=== PATIENT | male | born 1965 | race Caucasian/White ===

== ENCOUNTER 2018-05-26 09:15 | Inpatient (IN) | payer OTHER ==
[2018-05-26 09:50] VITALS: BMI 29.4
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
[2018-05-26] MEDS ORDERED: guaiFENesin/D-METHORPHAN HB 10 ML UNIT-DOSE CUPS PO PRN (12:38)
[2018-05-26] MEDS ORDERED: LOPERAMIDE HCL 2 MG CAPSULE PO PRN (12:38)
[2018-05-26] MEDS ORDERED: MENTHOL/PHENOL 1 EACH UD MM PRN (12:38)
[2018-05-26] MEDS ORDERED: IBUPROFEN 400 MG TABLET (FP) PO PRN (12:38)
[2018-05-26] MEDS ORDERED: MAG HYDROX/AL HYDROX/SIMETH 30 ML UNIT-DOSE CUP PO PRN (12:38)
[2018-05-26] MEDS ORDERED: P-EPHED 60MG/TRIPROLIDI 2.5MG TABLET PO PRN (12:38)
[2018-05-26] MEDS ORDERED: MAGNESIUM HYDROX 2400MG/30ML ORAL SUSPENSION 30 ML CUP PO PRN (12:38)
[2018-05-26] MEDS ORDERED: MAGNESIUM CITRATE 300 ML BOTTLE PO PRN (12:38)
[2018-05-26] MEDS ORDERED: NICOTINE POLACRILEX 2 MG GUM BC PRN (12:38)
[2018-05-26] MEDS ORDERED: METHADONE HCL 10 MG TABLET (FOR DETOX USE ONLY) PO ONE ×2 (13:45→23:00)
[2018-05-26] MEDS: diazePAM 5 MG TABLET PO PRN ×3 (14:16→22:16)
[2018-05-26] MEDS: NICOTINE 14 MG/24 HOURS TOPICAL PATCH TD SCH (14:17)
--- NOTE | 2018-05-26 17:34 | EKG ---
Test Reason : Blood Pressure : / mmHG Vent. Rate : 069 BPM Atrial Rate : 069 BPM P-R Int : 168 ms QRS Dur : 102 ms QT Int : 408 ms P-R-T Axes : 049 030 043 degrees QTc Int : 437 ms NORMAL SINUS RHYTHM NORMAL ECG NO PREVIOUS ECGS AVAILABLE Confirmed by BERT DE LA CRUZ MD ([id number]) on 05/26/2018 5:33:39 PM Referred By: Confirmed By:BERT DE LA CRUZ MD
[2018-05-26] MEDS: THIAMINE HCL 100 MG TABLET (FP) PO SCH (22:16)
[2018-05-26] MEDS: MELATONIN 5 MG TABLETS PO PRN (22:17)
[2018-05-26 23:23] LABS: URINE APPEARANCE TURBID; URINE BILIRUBIN NEGATIVE (<2.0 mg/dL); URINE GLUCOSE (UA) NEGATIVE (NEGATIVE); URINE KETONE NEGATIVE (NEGATIVE); URINE LEUK ESTERASE NEGATIVE (NEGATIVE); URINE NITRITE NEGATIVE (NEGATIVE); URINE PROTEIN NEGATIVE (NEGATIVE); URINE UROBILINOGEN NEGATIVE mg/dL (0.2-1.0)
[2018-05-26 23:30] LABS: URINE COLOR YELLOW
--- NOTE | 2018-05-27 09:32 | CONSULT ---
[facility] Psychiatric Consult - Data Date of interview: 05/27/18 Admission source: [facility] Identifying data: Patient is a 52 year old male, , father of one, homeless, and unemployed. This is patient's first admission to detox at [facility]. Pt. admitted to for opioid dependence. Substance Abuse History: - Smoking Cessation. Smoking history: Current every day smoker. Have you smoked in the past 12 months: Yes. Aproximately how many cigarettes per day: 10. Hx Chewing Tobacco Use: No. Initiated information on smoking cessation: Yes. 'Breaking Loose' booklet given: 05/26/18. - Substance & Tx. History. Hx Alcohol Use: Yes (VERY INFREQUENT). Hx Substance Use: Yes ( HEROIN/OXYCONTIN/MARIJUANA). Substance Use Type: Marijuana (OCASSIONALLY). Hx Substance Use Treatment: Yes ([facility] - Substances Abused. Heroin. Route: Inhalation. Frequency: Daily. Amount used: 3-4 bags. Age of first use: 34. Date of Last Use: 05/25/18. Oxycontin. Route : Oral. Frequency: 1-3 times last 30 days. Amount used: 1-2 tabs. (80 mg.). Age of first use: 49. Date of Last Use: 05/19/18. Marijuana. Route: Smoking. Frequency: 1-2 times per week. Amount used: 1 joint. Age of first use: 13. Date of Last Use: 05/25/18 Medical History: asthma, diverticulitis;GERD Psychiatric History: Patient denies h/o psychiatric hospitalization and suicide attempt. Most recent OPD was provided 10 years ago at the inpatient rehab at [facility]. Pt. also seeked psychiatric treatment while in detox at [facility]. Pt. stated he was once prescribed seroquel 300mg + Trazodone 150mg (10 years ago). Pt. discontinued medication due to oversedation which resulted in patient unable to function on a daily basis. Currently, patient reports poor sleep. Physical/Sexual Abuse/Trauma History: denies. Mental Status Exam - Mental Status Exam Alert and Oriented to: Time, Place, Person Cognitive Function: Good Patient Appearance: Well Groomed Mood: Anxious, Euthymic Affect: Appropriate, Mood Congruent Patient Behavior: Appropriate, Cooperative Speech Pattern: Clear, Appropriate Voice Loudness: Normal Thought Process: Intact, Goal Oriented Thought Disorder: Not Present Hallucinations: Denies Suicidal Ideation: Denies Homicidal Ideation: Denies Insight/Judgement: Poor Sleep: Poorly Appetite: Fair Muscle strength/Tone: Normal Gait/Station: Normal Psychiatric Findings - Problem List ([place] 1, 2,3) (1) Nicotine dependence Current Visit: Yes Status: Chronic Qualifiers: Nicotine product type: cigarettes Substance use status: in withdrawal Qualified Code(s): F17.213 - Nicotine dependence, cigarettes, with withdrawal (2) Opioid dependence with withdrawal Current Visit: Yes Status: Acute (3) Substance induced mood disorder Current Visit: Yes Status: Acute (4) Insomnia Current Visit: Yes Status: Acute - Initial Treatment Plan Initial Treatment Plan: Psychoeducation provided. Detoxification in progress. Will order seroquel 50mg qhs. Benefits and side effects discussed. Verbal consent given.
[2018-05-27] MEDS ORDERED: METHADONE HCL 10 MG TABLET (FOR DETOX USE ONLY) PO ONE (10:00)
[2018-05-27 10:14] LABS: MCH 31.6 pg (25.7-33.7); MEAN CELL VOLUME 90.4 fl (80-96); MEAN PLT VOLUME 7.5 fl (7.5-11.1); PLATELET COUNT 303 K/MM3 (134-434); RBC 4.75 M/mm3 (4.00-5.60); RDW 13.7 % (11.9-15.9); WHITE BLOOD COUNT 10.2 K/mm3 (4.0-10.0)
[2018-05-27] MEDS: PRENATAL VITAMINS W/ FOLIC ACID TABLET (FP) PO SCH (10:34)
[2018-05-27] MEDS: NICOTINE 14 MG/24 HOURS TOPICAL PATCH TD SCH (10:34)
[2018-05-27] MEDS: diazePAM 5 MG TABLET PO PRN ×4 (10:34→23:52)
[2018-05-27 10:36] LABS: CHLORIDE 103 mmol/L (98-107); SODIUM 141 mmol/L (136-145)
[2018-05-27 10:51] LABS: ALK PHOS 123 U/L (45-117); ANION GAP 12 MMOL/L (8-16); BILIRUBIN,TOTAL 0.2 mg/dL (0.2-1.0); BLOOD UREA NITROGEN 21 mg/dL (7-18); CO2 26 mmol/L (21-32); CREATININE 0.8 mg/dL (0.7-1.3); GLUCOSE,RANDOM 111 mg/dL (74-106); SGOT/AST 18 U/L (15-37); SGPT/ALT 27 U/L (12-78); TOT PROT 7.5 g/dl (6.4-8.2)
[2018-05-27] MEDS ORDERED: POLYETHYLENE GLYCOL 3350 119 GM BTL PO ONE (11:50)
[2018-05-27] MEDS ORDERED: TRIMETHOBENZAMIDE HCL 300 MG CAPSULE PO PRN (11:51)
[2018-05-27] MEDS: LIDOCAINE 5% TOPICAL PATCH TP SCH (13:52)
--- NOTE | 2018-05-27 14:07 | PN ---
BHS COWS - Scale Resting Pulse: 0= [place] 80 or Below Sweatin=Flushed/Facial Moisture Restless Observation: 1= Difficult to Sit Still Pupil Size: 0= Normal to Room Light Bone or Joint Aches: 2= Severe Diffuse Aches Runny Nose/ Eye Tearin= None GI Upset > 30mins: 2= Nausea/Diarrhea Tremor Observation of Outstretched Hands: 0= None Yawning Observation: 1= 1-2x During Session Anxiety or Irritability: 2=Irritable/Anxious Goose Flesh Skin: 3=Piloerection COWS Score: 13 BHS Progress Note (SOAP) Subjective: Sweating, Body Aches, Hot/Cold Sensations, Interrupted Sleep, Fatigue. Objective: PATIENT A & O X 3, OBSERVED AMBULATING ON UNIT. NO ACUTE DISTRESS. 05/27/18 14:03 Vital Signs Temperature 98.9 F 05/27/18 10:14 Pulse Rate 72 05/27/18 10:14 Respiratory Rate 16 05/27/18 10:14 Blood Pressure 150/88 05/27/18 10:14 O2 Sat by Pulse Oximetry (%) Laboratory Tests 05/26/18 05/27/18 05/27/18 21:44 06:10 06:10 WBC 10.2 H RBC 4.75 Hgb 15.0 Hct 43.0 MCV 90.4 MCH 31.6 MCHC 35.0 RDW 13.7 Plt Count 303 MPV 7.5 Sodium Potassium Chloride Carbon Dioxide Anion Gap BUN Creatinine Creat Clearance w eGFR Random Glucose Calcium Total Bilirubin AST ALT Alkaline Phosphatase Total Protein Albumin Urine Color Yellow Urine Appearance Turbid Urine pH 6.0 Ur Specific [place] 1.024 Urine Protein Negative Urine Glucose (UA) Negative Urine Ketones Negative Urine Blood Negative Urine Nitrite Negative Urine Bilirubin Negative Urine Urobilinogen Negative Ur Leukocyte Esterase Negative RPR Titer HIV 1&2 Antibody Screen Negative HIV P24 Antigen Negative 05/27/18 05/27/18 06:10 06:10 WBC RBC Hgb Hct MCV MCH MCHC RDW Plt Count MPV Sodium 141 Potassium 4.0 Chloride 103 Carbon Dioxide 26 Anion Gap 12 BUN 21 H Creatinine 0.8 Creat Clearance w eGFR > 60 Random Glucose 111 H Calcium 9.0 Total Bilirubin 0.2 AST 18 ALT 27 Alkaline Phosphatase 123 H Total Protein 7.5 Albumin 4.0 Urine Color Urine Appearance Urine pH Ur Specific [place] Urine Protein Urine Glucose (UA) Urine Ketones Urine Blood Urine Nitrite Urine Bilirubin Urine Urobilinogen Ur Leukocyte Esterase RPR Titer Nonreactive HIV 1&2 Antibody Screen HIV P24 Antigen LABS NOTED. Assessment: 05/27/18 14:05 WITHDRAWAL SYMPTOMS. Plan: CONTINUE DETOX. INCREASE DAILY PO FLUID INTAKE. PRN FLEXERIL FOR BODY ACHES/MUSCLE SPASMS. PRN TIGAN PO FOR NAUSEA. LIDODERM PATCH FOR LOWER BACK ACHE.
[2018-05-27] MEDS: CYCLOBENZAPRINE HCL 10 MG TABLET (FP) PO PRN ×2 (15:21→22:36)
[2018-05-27] MEDS: QUEtiapine FUMARATE 50 MG TABLET PO SCH (22:33)
[2018-05-27] MEDS: THIAMINE HCL 100 MG TABLET (FP) PO SCH (22:33)
[2018-05-27] MEDS: LIDOCAINE PATCH REMOVAL MC SCH (22:33)
[2018-05-27] MEDS: MELATONIN 5 MG TABLETS PO PRN (22:34)
[2018-05-28] MEDS: ACETAMINOPHEN 325 MG TABLET (FP) PO PRN (03:22)
[2018-05-28] MEDS: diazePAM 5 MG TABLET PO PRN ×4 (03:58→22:17)
[2018-05-28] MEDS ORDERED: POLYETHYLENE GLYCOL 3350 119 GM BTL PO SCH (10:00)
[2018-05-28] MEDS ORDERED: METHADONE HCL 5 MG TABLET (FOR DETOX USE ONLY) PO ONE (10:00)
[2018-05-28] MEDS: PRENATAL VITAMINS W/ FOLIC ACID TABLET (FP) PO SCH (10:09)
[2018-05-28] MEDS: METHYL SALICYLATE/MENTHOL OINT 30 GM TUBE TP SCH ×2 (10:10→22:17)
[2018-05-28] MEDS: NICOTINE 14 MG/24 HOURS TOPICAL PATCH TD SCH (10:10)
[2018-05-28] MEDS: NAPROXEN 500 MG TABLET (FP) PO SCH ×2 (10:10→22:17)
[2018-05-28] MEDS: LIDOCAINE 5% TOPICAL PATCH TP SCH (10:10)
--- NOTE | 2018-05-28 13:12 | PN ---
BHS COWS - Scale Resting Pulse: 0= [place] 80 or Below Sweatin= Chills/Flushing Restless Observation: 1= Difficult to Sit Still Pupil Size: 0= Normal to Room Light Bone or Joint Aches: 4=Acute Joint/Muscle Pain Runny Nose/ Eye Tearin= None GI Upset > 30mins: 2= Nausea/Diarrhea Tremor Observation of Outstretched Hands: 2= Slight Tremor Visible Yawning Observation: 1= 1-2x During Session Anxiety or Irritability: 2=Irritable/Anxious Goose Flesh Skin: 0=Smooth Skin COWS Score: 13 BHS Progress Note (SOAP) Subjective: Interrupted sleep, Diarrhea, Body Aches, Sweating, Tremors. Objective: PATIENT A & O X 3, OBSERVED AMBULATING ON UNIT. NO ACUTE DISTRESS. 05/28/18 13:09 Vital Signs Temperature 98.4 F 05/28/18 10:01 Pulse Rate 67 05/28/18 10:01 Respiratory Rate 18 05/28/18 10:01 Blood Pressure 149/92 05/28/18 10:01 O2 Sat by Pulse Oximetry (%) Laboratory Tests 05/26/18 05/27/18 05/27/18 21:44 06:10 06:10 WBC 10.2 H RBC 4.75 Hgb 15.0 Hct 43.0 MCV 90.4 MCH 31.6 MCHC 35.0 RDW 13.7 Plt Count 303 MPV 7.5 Sodium Potassium Chloride Carbon Dioxide Anion Gap BUN Creatinine Creat Clearance w eGFR Random Glucose Calcium Total Bilirubin AST ALT Alkaline Phosphatase Total Protein Albumin Urine Color Yellow Urine Appearance Turbid Urine pH 6.0 Ur Specific [place] 1.024 Urine Protein Negative Urine Glucose (UA) Negative Urine Ketones Negative Urine Blood Negative Urine Nitrite Negative Urine Bilirubin Negative Urine Urobilinogen Negative Ur Leukocyte Esterase Negative RPR Titer HIV 1&2 Antibody Screen Negative HIV P24 Antigen Negative 05/27/18 05/27/18 06:10 06:10 WBC RBC Hgb Hct MCV MCH MCHC RDW Plt Count MPV Sodium 141 Potassium 4.0 Chloride 103 Carbon Dioxide 26 Anion Gap 12 BUN 21 H Creatinine 0.8 Creat Clearance w eGFR > 60 Random Glucose 111 H Calcium 9.0 Total Bilirubin 0.2 AST 18 ALT 27 Alkaline Phosphatase 123 H Total Protein 7.5 Albumin 4.0 Urine Color Urine Appearance Urine pH Ur Specific [place] Urine Protein Urine Glucose (UA) Urine Ketones Urine Blood Urine Nitrite Urine Bilirubin Urine Urobilinogen Ur Leukocyte Esterase RPR Titer Nonreactive HIV 1&2 Antibody Screen HIV P24 Antigen LABS NOTED. Assessment: 05/28/18 13:10 WITHDRAWAL SYMPTOMS. Plan: CONTINUE DETOX. INCREASE DAILY PO FLUID INTAKE. HOLD MIRALAX FOR TIME BEING DUE TO DIARRHEA. NAPROXEN BID BODY ACHES (PATIENT ALSO HAS CHRONIC SHOULD PAIN CONDITION). CLONIDINE, 0.1 MG PO X 1 FOR WITHDRAWAL SYMPTOMS AND FOR ELEVATED BP.
[2018-05-28] MEDS: CYCLOBENZAPRINE HCL 10 MG TABLET (FP) PO PRN ×2 (13:39→22:17)
[2018-05-28] MEDS ORDERED: cloNIDine HCL 0.1 MG TABLET PO ONE (13:50)
[2018-05-28] MEDS: QUEtiapine FUMARATE 50 MG TABLET PO SCH (22:17)
[2018-05-28] MEDS: THIAMINE HCL 100 MG TABLET (FP) PO SCH (22:18)
[2018-05-28] MEDS: LIDOCAINE PATCH REMOVAL MC SCH (22:18)
[2018-05-29] MEDS: diazePAM 5 MG TABLET PO PRN ×2 (03:47→10:25)
[2018-05-29] MEDS ORDERED: METHADONE HCL 5 MG TABLET (FOR DETOX USE ONLY) PO ONE (10:00)
[2018-05-29] MEDS: METHYL SALICYLATE/MENTHOL OINT 30 GM TUBE TP SCH (10:21)
[2018-05-29] MEDS: NAPROXEN 500 MG TABLET (FP) PO SCH ×2 (10:22→22:21)
[2018-05-29] MEDS: LIDOCAINE 5% TOPICAL PATCH TP SCH ×2 (10:22→15:44)
[2018-05-29] MEDS: PRENATAL VITAMINS W/ FOLIC ACID TABLET (FP) PO SCH (10:22)
[2018-05-29] MEDS: NICOTINE 14 MG/24 HOURS TOPICAL PATCH TD SCH (10:22)
[2018-05-29] MEDS: CYCLOBENZAPRINE HCL 10 MG TABLET (FP) PO PRN (12:55)
--- NOTE | 2018-05-29 15:33 | PN ---
BHS Progress Note (SOAP) Subjective: Sweating, Body Aches, Anxious. Objective: PATIENT A & O X 3, OBSERVED AMBULATING ON UNIT. NO ACUTE DISTRESS. 05/29/18 15:32 Vital Signs Temperature 97.5 F L 05/29/18 09:52 Pulse Rate 73 05/29/18 09:52 Respiratory Rate 18 05/29/18 09:52 Blood Pressure 145/87 05/29/18 09:52 O2 Sat by Pulse Oximetry (%) Laboratory Tests 05/26/18 05/27/18 05/27/18 21:44 06:10 06:10 WBC 10.2 H RBC 4.75 Hgb 15.0 Hct 43.0 MCV 90.4 MCH 31.6 MCHC 35.0 RDW 13.7 Plt Count 303 MPV 7.5 Sodium Potassium Chloride Carbon Dioxide Anion Gap BUN Creatinine Creat Clearance w eGFR Random Glucose Calcium Total Bilirubin AST ALT Alkaline Phosphatase Total Protein Albumin Urine Color Yellow Urine Appearance Turbid Urine pH 6.0 Ur Specific [place] 1.024 Urine Protein Negative Urine Glucose (UA) Negative Urine Ketones Negative Urine Blood Negative Urine Nitrite Negative Urine Bilirubin Negative Urine Urobilinogen Negative Ur Leukocyte Esterase Negative RPR Titer HIV 1&2 Antibody Screen Negative HIV P24 Antigen Negative 05/27/18 05/27/18 06:10 06:10 WBC RBC Hgb Hct MCV MCH MCHC RDW Plt Count MPV Sodium 141 Potassium 4.0 Chloride 103 Carbon Dioxide 26 Anion Gap 12 BUN 21 H Creatinine 0.8 Creat Clearance w eGFR > 60 Random Glucose 111 H Calcium 9.0 Total Bilirubin 0.2 AST 18 ALT 27 Alkaline Phosphatase 123 H Total Protein 7.5 Albumin 4.0 Urine Color Urine Appearance Urine pH Ur Specific [place] Urine Protein Urine Glucose (UA) Urine Ketones Urine Blood Urine Nitrite Urine Bilirubin Urine Urobilinogen Ur Leukocyte Esterase RPR Titer Nonreactive HIV 1&2 Antibody Screen HIV P24 Antigen LABS NOTED. Assessment: 05/29/18 15:32 WITHDRAWAL SYMPTOMS. Plan: CONTINUE DETOX. INCREASE DAILY PO FLUID INTAKE.
[2018-05-29] MEDS: QUEtiapine FUMARATE 50 MG TABLET PO SCH (22:21)
[2018-05-29] MEDS: LIDOCAINE PATCH REMOVAL MC SCH ×2 (22:21)
[2018-05-29] MEDS: THIAMINE HCL 100 MG TABLET (FP) PO SCH (22:21)
[2018-05-29] MEDS: MELATONIN 5 MG TABLETS PO PRN (22:22)
[2018-05-29] MEDS: hydrOXYzine PAMOATE 50 MG CAPSULE (FP) PO PRN (22:24)
[2018-05-30] MEDS ORDERED: METHADONE HCL 10 MG TABLET (FOR DETOX USE ONLY) PO ONE (10:00)
[2018-05-30] MEDS: NICOTINE 14 MG/24 HOURS TOPICAL PATCH TD SCH (10:14)
[2018-05-30] MEDS: PRENATAL VITAMINS W/ FOLIC ACID TABLET (FP) PO SCH (10:14)
[2018-05-30] MEDS: LIDOCAINE 5% TOPICAL PATCH TP SCH ×2 (10:14)
[2018-05-30] MEDS: NAPROXEN 500 MG TABLET (FP) PO SCH ×2 (10:14→22:46)
[2018-05-30] MEDS: hydrOXYzine PAMOATE 50 MG CAPSULE (FP) PO PRN ×2 (10:15→19:04)
[2018-05-30] MEDS: CYCLOBENZAPRINE HCL 10 MG TABLET (FP) PO PRN ×2 (13:47→22:46)
[2018-05-30] MEDS: ACETAMINOPHEN 325 MG TABLET (FP) PO PRN (14:26)
--- NOTE | 2018-05-30 15:48 | PN ---
BHS Progress Note (SOAP) Subjective: Interrupted sleep, sweating, diarrhea Objective: 05/30/18 15:47 Last Vital Signs Temp Pulse Resp BP Pulse Ox 99.1 F 85 18 145/82 05/30/18 14:42 05/30/18 14:42 05/30/18 14:42 05/30/18 14:42 Laboratory Tests 05/26/18 05/27/18 05/27/18 21:44 06:10 06:10 WBC 10.2 H RBC 4.75 Hgb 15.0 Hct 43.0 MCV 90.4 MCH 31.6 MCHC 35.0 RDW 13.7 Plt Count 303 MPV 7.5 Sodium Potassium Chloride Carbon Dioxide Anion Gap BUN Creatinine Creat Clearance w eGFR Random Glucose Calcium Total Bilirubin AST ALT Alkaline Phosphatase Total Protein Albumin Urine Color Yellow Urine Appearance Turbid Urine pH 6.0 Ur Specific [place] 1.024 Urine Protein Negative Urine Glucose (UA) Negative Urine Ketones Negative Urine Blood Negative Urine Nitrite Negative Urine Bilirubin Negative Urine Urobilinogen Negative Ur Leukocyte Esterase Negative RPR Titer HIV 1&2 Antibody Screen Negative HIV P24 Antigen Negative 05/27/18 05/27/18 06:10 06:10 WBC RBC Hgb Hct MCV MCH MCHC RDW Plt Count MPV Sodium 141 Potassium 4.0 Chloride 103 Carbon Dioxide 26 Anion Gap 12 BUN 21 H Creatinine 0.8 Creat Clearance w eGFR > 60 Random Glucose 111 H Calcium 9.0 Total Bilirubin 0.2 AST 18 ALT 27 Alkaline Phosphatase 123 H Total Protein 7.5 Albumin 4.0 Urine Color Urine Appearance Urine pH Ur Specific [place] Urine Protein Urine Glucose (UA) Urine Ketones Urine Blood Urine Nitrite Urine Bilirubin Urine Urobilinogen Ur Leukocyte Esterase RPR Titer Nonreactive HIV 1&2 Antibody Screen HIV P24 Antigen Labs reviewed: bun 21 Assessment: 05/30/18 15:47 Withdrawal symptoms Noted with azotemia Plan: Continue detox Azotemia: encouraged PO water hydration
[2018-05-30] MEDS: LIDOCAINE PATCH REMOVAL MC SCH ×2 (22:43)
[2018-05-30] MEDS: MELATONIN 5 MG TABLETS PO PRN (22:46)
[2018-05-30] MEDS: THIAMINE HCL 100 MG TABLET (FP) PO SCH (22:46)
[2018-05-30] MEDS: QUEtiapine FUMARATE 50 MG TABLET PO SCH (22:47)
[2018-05-31] MEDS: ACETAMINOPHEN 325 MG TABLET (FP) PO PRN ×2 (02:14→07:54)
[2018-05-31] MEDS: hydrOXYzine PAMOATE 50 MG CAPSULE (FP) PO PRN (04:08)
[2018-05-31] MEDS ORDERED: METHADONE HCL 5 MG TABLET (FOR DETOX USE ONLY) PO ONE (06:00)
[2018-05-31 06:12] VITALS: BP 107/65; PULSE 64; TEMP 97.3
[2018-05-31] MEDS: CYCLOBENZAPRINE HCL 10 MG TABLET (FP) PO PRN (07:55)
[2018-05-31] MEDS ORDERED: ALBUTEROL SO4 8 GM HFA INHALER IH PRN (08:47)
== END 2018-05-31 09:36 | disposition home or self-care (01) | DRG 773 ==
LOC: YASAS 09:15 → Y3N 12:55
PROVIDERS: ADMIT Surgery; ATTEND Surgery
PROC: HZ2ZZZZ Detoxification Services for Substance Abuse Treatment (ICD-10-PCS; principal; 2018-05-26)
DX: F11.23 Opioid dependence with withdrawal (principal); F17.213 Nicotine dependence, cigarettes, with withdrawal; F19.24 Other psychoactive substance dependence with psychoactive substance-induced mood disorder; F41.8 Other specified anxiety disorders; G47.00 Insomnia, unspecified; J45.20 Mild intermittent asthma, uncomplicated; K21.9 Gastro-esophageal reflux disease without esophagitis; R79.89 Other specified abnormal findings of blood chemistry; Z87.19 Personal history of other diseases of the digestive system
CPT/HCPCS: 36415; 80053; 81003; 85027; 86593; 87389; 93005; 93010; J0735

== ENCOUNTER 2018-06-29 09:43 | Inpatient (IN) | payer OTHER ==
[2018-06-29 10:23] VITALS: BMI 30.2
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
[2018-06-29] MEDS ORDERED: IBUPROFEN 400 MG TABLET (FP) PO PRN (11:51)
[2018-06-29] MEDS ORDERED: P-EPHED 60MG/TRIPROLIDI 2.5MG TABLET PO PRN (11:51)
[2018-06-29] MEDS ORDERED: ACETAMINOPHEN 325 MG TABLET (FP) PO PRN (11:51)
[2018-06-29] MEDS ORDERED: MAGNESIUM HYDROX 2400MG/30ML ORAL SUSPENSION 30 ML CUP PO PRN (11:51)
[2018-06-29] MEDS ORDERED: LOPERAMIDE HCL 2 MG CAPSULE PO PRN (11:51)
[2018-06-29] MEDS ORDERED: MENTHOL/PHENOL 1 EACH UD MM PRN (11:51)
[2018-06-29] MEDS ORDERED: guaiFENesin/D-METHORPHAN HB 10 ML UNIT-DOSE CUPS PO PRN (11:51)
[2018-06-29] MEDS ORDERED: MAGNESIUM CITRATE 300 ML BOTTLE PO PRN (11:51)
[2018-06-29] MEDS ORDERED: NICOTINE POLACRILEX 2 MG GUM BUC PRN (11:51)
[2018-06-29] MEDS ORDERED: ALBUTEROL SO4 8 GM HFA INHALER IH PRN (11:53)
[2018-06-29] MEDS ORDERED: diazePAM 5 MG TABLET PO ONE (12:00)
[2018-06-29] MEDS ORDERED: METHADONE HCL 10 MG TABLET (FOR DETOX USE ONLY) PO ONE ×2 (12:00→23:00)
--- NOTE | 2018-06-29 16:35 | EKG ---
Test Reason : Blood Pressure : / mmHG Vent. Rate : 067 BPM Atrial Rate : 067 BPM P-R Int : 174 ms QRS Dur : 110 ms QT Int : 400 ms P-R-T Axes : 040 016 018 degrees QTc Int : 422 ms NORMAL SINUS RHYTHM SEPTAL INFARCT , AGE UNDETERMINED ABNORMAL ECG WHEN COMPARED WITH ECG OF 26-MAY-2018 13:58, SEPTAL INFARCT IS NOW PRESENT Confirmed by MD Starr, Edilberto ([id number]) on 06/29/2018 4:35:23 PM Referred By: Confirmed By:Edilberto Clements MD
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
[2018-06-29] MEDS: diazePAM 5 MG TABLET PO PRN (18:25)
[2018-06-29] MEDS: QUEtiapine FUMARATE 50 MG TABLET PO SCH (22:15)
[2018-06-29] MEDS: THIAMINE HCL 100 MG TABLET (FP) PO SCH (22:15)
[2018-06-29] MEDS: cloNIDine HCL 0.1 MG TABLET PO SCH (22:16)
[2018-06-29] MEDS: diazePAM 5 MG TABLET PO SCH (22:16)
[2018-06-29] MEDS: CYCLOBENZAPRINE HCL 10 MG TABLET (FP) PO PRN (22:18)
[2018-06-30] MEDS: MELATONIN 5 MG TABLETS PO PRN ×2 (01:42→22:10)
[2018-06-30] MEDS: diazePAM 5 MG TABLET PO PRN ×4 (01:43→17:33)
[2018-06-30] MEDS ORDERED: METHADONE HCL 10 MG TABLET (FOR DETOX USE ONLY) PO SCH (10:00)
[2018-06-30 10:05] LABS: HEMATOCRIT 41.7 % (35.4-49); HEMOGLOBIN 13.9 GM/dL (11.7-16.9); MCHC 33.5 g/dl (32.0-35.9); MEAN CELL VOLUME 92.7 fl (80-96); MEAN PLT VOLUME 7.7 fl (7.5-11.1); PLATELET COUNT 365 K/MM3 (134-434); RDW 13.9 % (11.9-15.9); WHITE BLOOD COUNT 10.2 K/mm3 (4.0-10.0)
[2018-06-30 10:19] LABS: ALK PHOS 94 U/L (45-117); ANION GAP 10 MMOL/L (8-16); BILIRUBIN,TOTAL 0.3 mg/dL (0.2-1); BLOOD UREA NITROGEN 19 mg/dL (7-18); CALCIUM 9.3 mg/dL (8.5-10.1); CHLORIDE 106 mmol/L (98-107); CO2 24 mmol/L (21-32); CREATININE 0.9 mg/dL (0.55-1.3); GLUCOSE,RANDOM 140 mg/dL (74-106); POTASSIUM 4.1 mmol/L (3.5-5.1); SGOT/AST 8 U/L (15-37); SGPT/ALT 18 U/L (13-61); SODIUM 139 mmol/L (136-145); TOT PROT 7.3 g/dl (6.4-8.2)
[2018-06-30] MEDS: PRENATAL VITAMINS W/ FOLIC ACID TABLET (FP) PO SCH (10:24)
[2018-06-30] MEDS: cloNIDine HCL 0.1 MG TABLET PO SCH ×2 (10:24→22:10)
[2018-06-30] MEDS ORDERED: FLU VACCINE QUAD 60 MCG/0.5 ML (MDV 18-19) IM ONE (12:00)
[2018-06-30] MEDS ORDERED: PNEUMOCOCCAL 23 VACCINE 0.5 ML VIAL IM ONE (12:00)
[2018-06-30] MEDS ORDERED: PNEUMOC 13-VAL CONJ-DIP CRM/PF 0.5 ML DISP.SYRIN IM ONE (12:00)
[2018-06-30] MEDS: diazePAM 5 MG TABLET PO SCH (16:16)
--- NOTE | 2018-06-30 18:23 | PN ---
[facility] CIWA - CIWA Score Nausea/Vomitin-Mild Nausea/No Vomiting Muscle Tremors: 4-Moderate,w/Arms Extend Anxiety: 3 Agitation: 4-Moderately Restless Paroxysmal Sweats: 1-Minimal Palms Moist Orientation: 1-Uncertain about Date Tacttile Disturbances: 1-Very Mild Itch/Numbness Auditory Disturbances: 0-None Visual Disturbances: 0-None Headache: 0-None Present CIWA-Ar Total Score: 15 S COWS - Scale Resting Pulse: 0= [place] 80 or Below Sweatin= Chills/Flushing Restless Observation: 1= Difficult to Sit Still Pupil Size: 0= Normal to Room Light Bone or Joint Aches: 2= Severe Diffuse Aches Runny Nose/ Eye Tearin= Nasal Congestion GI Upset > 30mins: 2= Nausea/Diarrhea Tremor Observation of Outstretched Hands: 2= Slight Tremor Visible Yawning Observation: 1= 1-2x During Session Anxiety or Irritability: 2=Irritable/Anxious Goose Flesh Skin: 3=Piloerection COWS Score: 15 [facility] Progress Note (SOAP) Subjective: tremor sweat anxiety nausea Objective: 06/30/18 18:23 Vital Signs Temperature 97.9 F 06/30/18 17:33 Pulse Rate 67 06/30/18 17:33 Respiratory Rate 18 06/30/18 17:33 Blood Pressure 120/67 06/30/18 17:33 O2 Sat by Pulse Oximetry (%) Laboratory Last Values WBC 10.2 K/mm3 (4.0-10.0) H 06/30/18 05:45 RBC 4.50 M/mm3 (4.00-5.60) 06/30/18 05:45 Hgb 13.9 GM/dL (11.7-16.9) 06/30/18 05:45 Hct 41.7 % (35.4-49) 06/30/18 05:45 MCV 92.7 fl (80-96) 06/30/18 05:45 MCH 31.0 pg (25.7-33.7) 06/30/18 05:45 MCHC 33.5 g/dl (32.0-35.9) 06/30/18 05:45 RDW 13.9 % (11.9-15.9) 06/30/18 05:45 Plt Count 365 K/MM3 (134-434) D 06/30/18 05:45 MPV 7.7 fl (7.5-11.1) 06/30/18 05:45 Sodium 139 mmol/L (136-145) 06/30/18 05:45 Potassium 4.1 mmol/L (3.5-5.1) 06/30/18 05:45 Chloride 106 mmol/L (98-107) 06/30/18 05:45 Carbon Dioxide 24 mmol/L (21-32) 06/30/18 05:45 Anion Gap 10 MMOL/L (8-16) 06/30/18 05:45 BUN 19 mg/dL (7-18) H 06/30/18 05:45 Creatinine 0.9 mg/dL (0.55-1.3) 06/30/18 05:45 Creat Clearance w eGFR > 60 (>60) 06/30/18 05:45 Random Glucose 140 mg/dL (74-106) H 06/30/18 05:45 Calcium 9.3 mg/dL (8.5-10.1) 06/30/18 05:45 Total Bilirubin 0.3 mg/dL (0.2-1) 06/30/18 05:45 AST 8 U/L (15-37) L 06/30/18 05:45 ALT 18 U/L (13-61) 06/30/18 05:45 Alkaline Phosphatase 94 U/L (45-117) 06/30/18 05:45 Total Protein 7.3 g/dl (6.4-8.2) 06/30/18 05:45 Albumin 4.0 g/dl (3.4-5.0) 06/30/18 05:45 RPR Titer Nonreactive (NONREACTIVE) 06/30/18 05:45 lab noted Assessment: 06/30/18 18:23 withdrawal sx Plan: continue detox
[2018-06-30] MEDS: CYCLOBENZAPRINE HCL 10 MG TABLET (FP) PO PRN (22:10)
[2018-06-30] MEDS: THIAMINE HCL 100 MG TABLET (FP) PO SCH (22:10)
[2018-06-30] MEDS: QUEtiapine FUMARATE 50 MG TABLET PO SCH (22:10)
[2018-07-01] MEDS: diazePAM 5 MG TABLET PO PRN ×4 (01:41→18:16)
[2018-07-01] MEDS: hydrOXYzine PAMOATE 50 MG CAPSULE (FP) PO PRN (03:19)
[2018-07-01] MEDS: diazePAM 5 MG TABLET PO SCH ×2 (10:53→22:42)
[2018-07-01] MEDS: PRENATAL VITAMINS W/ FOLIC ACID TABLET (FP) PO SCH (10:53)
[2018-07-01] MEDS: METHADONE HCL 5 MG TABLET (FOR DETOX USE ONLY) PO SCH (10:54)
[2018-07-01] MEDS: cloNIDine HCL 0.1 MG TABLET PO SCH ×2 (10:54→22:42)
--- NOTE | 2018-07-01 11:27 | PN ---
S CIWA - CIWA Score Nausea/Vomitin-Mild Nausea/No Vomiting Muscle Tremors: 2 Anxiety: 3 Agitation: 3 Paroxysmal Sweats: 2 Orientation: 0-Oriented Tacttile Disturbances: 1-Very Mild Itch/Numbness Auditory Disturbances: 0-None Visual Disturbances: 0-None Headache: 0-None Present CIWA-Ar Total Score: 12 [facility] COWS - Scale Resting Pulse: 0= [place] 80 or Below Sweatin=Flushed/Facial Moisture Restless Observation: 1= Difficult to Sit Still Pupil Size: 1= Pupils >than Normal Bone or Joint Aches: 1= Mild Discomfort Runny Nose/ Eye Tearin= Nasal Congestion GI Upset > 30mins: 1= Stomach Cramp Tremor Observation of Outstretched Hands: 2= Slight Tremor Visible Yawning Observation: 1= 1-2x During Session Anxiety or Irritability: 2=Irritable/Anxious Goose Flesh Skin: 0=Smooth Skin COWS Score: 12 S Progress Note (SOAP) Subjective: interrupted sleep, no sleep last night, irritable, chills, sweat Objective: 07/01/18 11:27 Vital Signs Temperature 97.3 F L 07/01/18 09:13 Pulse Rate 66 07/01/18 09:13 Respiratory Rate 18 07/01/18 09:13 Blood Pressure 128/72 07/01/18 09:13 O2 Sat by Pulse Oximetry (%) Laboratory Last Values WBC 10.2 K/mm3 (4.0-10.0) H 06/30/18 05:45 RBC 4.50 M/mm3 (4.00-5.60) 06/30/18 05:45 Hgb 13.9 GM/dL (11.7-16.9) 06/30/18 05:45 Hct 41.7 % (35.4-49) 06/30/18 05:45 MCV 92.7 fl (80-96) 06/30/18 05:45 MCH 31.0 pg (25.7-33.7) 06/30/18 05:45 MCHC 33.5 g/dl (32.0-35.9) 06/30/18 05:45 RDW 13.9 % (11.9-15.9) 06/30/18 05:45 Plt Count 365 K/MM3 (134-434) D 06/30/18 05:45 MPV 7.7 fl (7.5-11.1) 06/30/18 05:45 Sodium 139 mmol/L (136-145) 06/30/18 05:45 Potassium 4.1 mmol/L (3.5-5.1) 06/30/18 05:45 Chloride 106 mmol/L (98-107) 06/30/18 05:45 Carbon Dioxide 24 mmol/L (21-32) 06/30/18 05:45 Anion Gap 10 MMOL/L (8-16) 06/30/18 05:45 BUN 19 mg/dL (7-18) H 06/30/18 05:45 Creatinine 0.9 mg/dL (0.55-1.3) 06/30/18 05:45 Creat Clearance w eGFR > 60 (>60) 06/30/18 05:45 Random Glucose 140 mg/dL (74-106) H 06/30/18 05:45 Calcium 9.3 mg/dL (8.5-10.1) 06/30/18 05:45 Total Bilirubin 0.3 mg/dL (0.2-1) 06/30/18 05:45 AST 8 U/L (15-37) L 06/30/18 05:45 ALT 18 U/L (13-61) 06/30/18 05:45 Alkaline Phosphatase 94 U/L (45-117) 06/30/18 05:45 Total Protein 7.3 g/dl (6.4-8.2) 06/30/18 05:45 Albumin 4.0 g/dl (3.4-5.0) 06/30/18 05:45 RPR Titer Nonreactive (NONREACTIVE) 06/30/18 05:45 Assessment: 07/01/18 15:06 AO X3 no distress no adventitious breath sounds full ROM, ambulating independently in the unit Plan: psych re: insomnia increase po fluids continue detox continue to monitor
[2018-07-01 14:34] LABS: URINE APPEARANCE CLEAR; URINE BILIRUBIN NEGATIVE (<2.0 mg/dL); URINE COLOR LTYELLOW; URINE GLUCOSE (UA) NEGATIVE (NEGATIVE); URINE KETONE NEGATIVE (NEGATIVE); URINE LEUK ESTERASE NEGATIVE (NEGATIVE); URINE NITRITE NEGATIVE (NEGATIVE); URINE PROTEIN NEGATIVE (NEGATIVE); URINE UROBILINOGEN NEGATIVE mg/dL (0.2-1.0)
--- NOTE | 2018-07-01 16:20 | PN ---
Psychiatric Progress Note Vital Signs: Vital Signs Period Temp Pulse Resp BP Sys/Cabrera Pulse Ox Last 24 Hr 97.3 F-97.9 F 66-78 18-18 120-135/67-81 Date of Session: 07/01/18 Chief Complaint:: "I cant' sleep." HPI: Pt. admitted to for alcohol and opiate dependence ROS: Diverticulities, Asthma Current Medications: Active Medications Generic Name Dose Route Start Last Admin Trade Name Freq PRN Reason Stop Dose Admin Acetaminophen 650 mg 06/29/18 11:51 Tylenol - PO Q4H PRN FEVER Al Hydroxide/Mg Hydroxide 30 ml 06/29/18 11:51 Mylanta Oral Suspension - PO Q6H PRN DYSPEPSIA Albuterol Sulfate 2 puff 06/29/18 11:53 Ventolin Hfa Inhaler - IH Q4H PRN ASTHMA Clonidine 0.1 mg 06/29/18 22:00 07/01/18 10:54 Catapres - PO 0.1 mg BID MAXINE Administration Cyclobenzaprine HCl 10 mg 06/29/18 11:54 06/30/18 22:10 Flexeril - PO 10 mg TID PRN Administration MUSCLE SPASMS Diazepam 5 mg 07/01/18 10:00 07/01/18 10:53 Valium - PO 07/02/18 22:01 5 mg BID MAXINE Administration Diazepam 5 mg 07/03/18 10:00 Valium - PO 07/03/18 10:01 DAILY MAXINE Diazepam 10 mg 06/29/18 11:51 07/01/18 14:45 Valium - PO 07/02/18 11:51 10 mg Q4H PRN Administration WITHDRAWAL(CONT SUBST) Docusate Sodium 100 mg 07/01/18 22:00 Colace - PO TID MAXINE Eucalyptus/Menthol/Phenol/Sorbitol 1 each 06/29/18 11:51 Cepastat Lozenge - MM Q4H PRN SORE THROAT Guaifenesin 10 ml 06/29/18 11:51 Robitussin Dm - PO Q6H PRN COUGH Hydroxyzine Pamoate 50 mg 06/29/18 11:51 07/01/18 03:19 Vistaril - PO 50 mg Q4H PRN Administration AGITATION Ibuprofen 400 mg 06/29/18 11:51 Motrin - PO Q6H PRN PAIN LEVEL 4-6 Loperamide HCl 4 mg 06/29/18 11:51 Imodium - PO Q6H PRN DIARRHEA Magnesium Citrate 300 ml 06/29/18 11:51 07/01/18 15:07 Citroma - PO 300 ml Q48H PRN Administration CONSTIPATION Magnesium Hydroxide 30 ml 06/29/18 11:51 Milk Of Magnesia - PO DAILY PRN CONSTIPATION Melatonin 5 mg 06/29/18 22:00 06/30/18 22:10 Melatonin PO 5 mg HS PRN Administration INSOMNIA Methadone HCl 10 mg 07/03/18 10:00 Dolophine - PO 07/03/18 10:01 DAILY MAXINE Methadone HCl 15 mg 07/01/18 10:00 07/01/18 10:54 Dolophine - PO 07/02/18 10:01 15 mg DAILY MAXINE Administration Methadone HCl 5 mg 07/04/18 06:00 Dolophine - PO 07/04/18 06:01 DAILY@0600 MAXINE Nicotine Polacrilex 2 mg 06/29/18 11:51 Nicorette Gum - BUC Q2H PRN NICOTINE REPLACEMENT RX Multivit/Folic Acid/Iron 1 tab 06/30/18 10:00 07/01/18 10:53 Vitamins (Sjr) - PO 1 tab DAILY MAXINE Administration Pseudoephedrine/Triprolidine 1 combo 06/29/18 11:51 Actifed - PO TID PRN NASAL CONGESTION Quetiapine Fumarate 50 mg 06/29/18 22:00 06/30/18 22:10 Seroquel - PO 50 mg HS MAXINE Administration Thiamine HCl 100 mg 06/29/18 22:00 06/30/18 22:10 Vitamin B1 - PO 100 mg HS MAXINE Administration Medication(s) Change(s): Yes. Will increase Seroquel to 100mg Current Side Effect: No Lab tests ordered: No Lab tests reviewed: Yes Provider note:: Chart reviewed. Pt. reports poor sleep. He is currently prescribed seroquel 50mg. Will increase seroquel to 100mg. Sleep hygiene discussed. Verbal consent given. Total face to face time:: 25 Mental Status Exam - Mental Status Exam Alert and Oriented to: Time, Place, Person Cognitive Function: Good Patient Appearance: Well Groomed Mood: Euthymic Affect: Mood Congruent Patient Behavior: Appropriate, Cooperative Speech Pattern: Clear, Appropriate Voice Loudness: Normal Thought Process: Intact, Goal Oriented Thought Disorder: Not Present Hallucinations: Denies Suicidal Ideation: Denies Homicidal Ideation: Denies Insight/Judgement: Poor Sleep: Poorly Appetite: Fair Muscle strength/Tone: Normal Gait/Station: Normal Psychiatric Treatment Plan - Problem List (1) Alcohol dependence with uncomplicated withdrawal Current Visit: Yes (2) Uncomplicated sedative, hypnotic or anxiolytic withdrawal Current Visit: Yes (3) Insomnia Current Visit: Yes (4) Opioid dependence with withdrawal Current Visit: Yes (5) Substance induced mood disorder Current Visit: Yes
[2018-07-01] MEDS: THIAMINE HCL 100 MG TABLET (FP) PO SCH (22:42)
[2018-07-01] MEDS: QUEtiapine FUMARATE 100 MG TABLET (FP) PO SCH (22:42)
[2018-07-01] MEDS: DOCUSATE SODIUM 100 MG CAPSULE (FP) PO SCH (22:42)
[2018-07-01] MEDS: MELATONIN 5 MG TABLETS PO PRN (22:44)
[2018-07-02] MEDS: diazePAM 5 MG TABLET PO PRN ×2 (02:23→06:33)
[2018-07-02] MEDS: DOCUSATE SODIUM 100 MG CAPSULE (FP) PO SCH ×3 (05:28→22:24)
[2018-07-02] MEDS: cloNIDine HCL 0.1 MG TABLET PO SCH ×2 (10:19→22:24)
[2018-07-02] MEDS: PRENATAL VITAMINS W/ FOLIC ACID TABLET (FP) PO SCH (10:19)
[2018-07-02] MEDS: METHADONE HCL 5 MG TABLET (FOR DETOX USE ONLY) PO SCH (10:20)
[2018-07-02] MEDS: diazePAM 5 MG TABLET PO SCH ×2 (10:20→22:24)
--- NOTE | 2018-07-02 10:51 | PN ---
[facility] Progress Note (SOAP) Subjective: sweats agitation body aches Objective: 07/02/18 10:50 Vital Signs Temperature 97.5 F L 07/02/18 09:20 Pulse Rate 68 07/02/18 09:20 Respiratory Rate 16 07/02/18 09:20 Blood Pressure 149/64 07/02/18 09:20 O2 Sat by Pulse Oximetry (%) aaox3 ambulating no acute distress Assessment: 07/02/18 10:50 withdrawal sx Plan: continue detox increase fluids
[2018-07-02] MEDS: hydrOXYzine PAMOATE 50 MG CAPSULE (FP) PO PRN (14:54)
[2018-07-02] MEDS: MAG HYDROX/AL HYDROX/SIMETH 30 ML UNIT-DOSE CUP PO PRN (21:24)
[2018-07-02] MEDS: THIAMINE HCL 100 MG TABLET (FP) PO SCH (22:24)
[2018-07-02] MEDS: QUEtiapine FUMARATE 100 MG TABLET (FP) PO SCH (22:24)
[2018-07-02] MEDS: CYCLOBENZAPRINE HCL 10 MG TABLET (FP) PO PRN (22:27)
[2018-07-03] MEDS: DOCUSATE SODIUM 100 MG CAPSULE (FP) PO SCH ×3 (05:18→22:14)
[2018-07-03] MEDS ORDERED: diazePAM 5 MG TABLET PO SCH (10:00)
[2018-07-03] MEDS ORDERED: METHADONE HCL 10 MG TABLET (FOR DETOX USE ONLY) PO SCH (10:00)
[2018-07-03] MEDS: cloNIDine HCL 0.1 MG TABLET PO SCH ×2 (10:10→22:14)
[2018-07-03] MEDS: CYCLOBENZAPRINE HCL 10 MG TABLET (FP) PO PRN (10:11)
[2018-07-03] MEDS: LIDOCAINE 5% TOPICAL PATCH TP SCH (10:11)
[2018-07-03] MEDS: PRENATAL VITAMINS W/ FOLIC ACID TABLET (FP) PO SCH (10:11)
--- NOTE | 2018-07-03 13:05 | PN ---
[facility] Progress Note Note: back pain, nausea/ vomiting, diarrhea Vital Signs Temperature 97.2 F L 07/03/18 08:59 Pulse Rate 81 07/03/18 08:59 Respiratory Rate 16 07/03/18 08:59 Blood Pressure 124/79 07/03/18 08:59 O2 Sat by Pulse Oximetry (%) Laboratory Last Values WBC 10.2 K/mm3 (4.0-10.0) H 06/30/18 05:45 RBC 4.50 M/mm3 (4.00-5.60) 06/30/18 05:45 Hgb 13.9 GM/dL (11.7-16.9) 06/30/18 05:45 Hct 41.7 % (35.4-49) 06/30/18 05:45 MCV 92.7 fl (80-96) 06/30/18 05:45 MCH 31.0 pg (25.7-33.7) 06/30/18 05:45 MCHC 33.5 g/dl (32.0-35.9) 06/30/18 05:45 RDW 13.9 % (11.9-15.9) 06/30/18 05:45 Plt Count 365 K/MM3 (134-434) D 06/30/18 05:45 MPV 7.7 fl (7.5-11.1) 06/30/18 05:45 Sodium 139 mmol/L (136-145) 06/30/18 05:45 Potassium 4.1 mmol/L (3.5-5.1) 06/30/18 05:45 Chloride 106 mmol/L (98-107) 06/30/18 05:45 Carbon Dioxide 24 mmol/L (21-32) 06/30/18 05:45 Anion Gap 10 MMOL/L (8-16) 06/30/18 05:45 BUN 19 mg/dL (7-18) H 06/30/18 05:45 Creatinine 0.9 mg/dL (0.55-1.3) 06/30/18 05:45 Creat Clearance w eGFR > 60 (>60) 06/30/18 05:45 Random Glucose 140 mg/dL (74-106) H 06/30/18 05:45 Calcium 9.3 mg/dL (8.5-10.1) 06/30/18 05:45 Total Bilirubin 0.3 mg/dL (0.2-1) 06/30/18 05:45 AST 8 U/L (15-37) L 06/30/18 05:45 ALT 18 U/L (13-61) 06/30/18 05:45 Alkaline Phosphatase 94 U/L (45-117) 06/30/18 05:45 Total Protein 7.3 g/dl (6.4-8.2) 06/30/18 05:45 Albumin 4.0 g/dl (3.4-5.0) 06/30/18 05:45 Urine Color Ltyellow 07/01/18 09:00 Urine Appearance Clear 07/01/18 09:00 Urine pH 7.0 (5.0-8.0) 07/01/18 09:00 Ur Specific [place] 1.016 (1.001-1.035) 07/01/18 09:00 Urine Protein Negative (NEGATIVE) 07/01/18 09:00 Urine Glucose (UA) Negative (NEGATIVE) 07/01/18 09:00 Urine Ketones Negative (NEGATIVE) 07/01/18 09:00 Urine Blood Negative (NEGATIVE) 07/01/18 09:00 Urine Nitrite Negative (NEGATIVE) 07/01/18 09:00 Urine Bilirubin Negative (<2.0 mg/dL) 07/01/18 09:00 Urine Urobilinogen Negative mg/dL (0.2-1.0) 07/01/18 09:00 Ur Leukocyte Esterase Negative (NEGATIVE) 07/01/18 09:00 RPR Titer Nonreactive (NONREACTIVE) 06/30/18 05:45 AOx3, anxious no adventitious breath sounds full ROM ambulating in the unit withdrawal sx increase po fluids zofran prn immodium prn contineu detox continue to monitor
[2018-07-03] MEDS: MAG HYDROX/AL HYDROX/SIMETH 30 ML UNIT-DOSE CUP PO PRN (13:56)
[2018-07-03] MEDS: hydrOXYzine PAMOATE 50 MG CAPSULE (FP) PO PRN (13:56)
[2018-07-03] MEDS: QUEtiapine FUMARATE 100 MG TABLET (FP) PO SCH (22:14)
[2018-07-03] MEDS: THIAMINE HCL 100 MG TABLET (FP) PO SCH (22:14)
[2018-07-03] MEDS: LIDOCAINE PATCH REMOVAL MC SCH (22:15)
[2018-07-03] MEDS: MELATONIN 5 MG TABLETS PO PRN (22:16)
[2018-07-04] MEDS: MAG HYDROX/AL HYDROX/SIMETH 30 ML UNIT-DOSE CUP PO PRN ×2 (01:47→19:10)
[2018-07-04] MEDS ORDERED: METHADONE HCL 5 MG TABLET (FOR DETOX USE ONLY) PO SCH (06:00)
[2018-07-04] MEDS: DOCUSATE SODIUM 100 MG CAPSULE (FP) PO SCH ×3 (06:31→22:19)
[2018-07-04] MEDS: hydrOXYzine PAMOATE 50 MG CAPSULE (FP) PO PRN (10:26)
[2018-07-04] MEDS: CYCLOBENZAPRINE HCL 10 MG TABLET (FP) PO PRN (10:26)
[2018-07-04] MEDS: IBUPROFEN 400 MG TABLET (FP) PO PRN (10:26)
[2018-07-04] MEDS: PRENATAL VITAMINS W/ FOLIC ACID TABLET (FP) PO SCH (10:27)
[2018-07-04] MEDS: cloNIDine HCL 0.1 MG TABLET PO SCH ×2 (10:27→22:18)
[2018-07-04] MEDS: LIDOCAINE 5% TOPICAL PATCH TP SCH (10:30)
--- NOTE | 2018-07-04 15:14 | PN ---
[facility] Progress Note (SOAP) Subjective: mild tremor less sweat Objective: 07/04/18 15:13 Vital Signs Temperature 98.2 F 07/04/18 14:00 Pulse Rate 79 07/04/18 14:00 Respiratory Rate 16 07/04/18 14:00 Blood Pressure 125/72 07/04/18 14:00 O2 Sat by Pulse Oximetry (%) Laboratory Last Values WBC 10.2 K/mm3 (4.0-10.0) H 06/30/18 05:45 RBC 4.50 M/mm3 (4.00-5.60) 06/30/18 05:45 Hgb 13.9 GM/dL (11.7-16.9) 06/30/18 05:45 Hct 41.7 % (35.4-49) 06/30/18 05:45 MCV 92.7 fl (80-96) 06/30/18 05:45 MCH 31.0 pg (25.7-33.7) 06/30/18 05:45 MCHC 33.5 g/dl (32.0-35.9) 06/30/18 05:45 RDW 13.9 % (11.9-15.9) 06/30/18 05:45 Plt Count 365 K/MM3 (134-434) D 06/30/18 05:45 MPV 7.7 fl (7.5-11.1) 06/30/18 05:45 Sodium 139 mmol/L (136-145) 06/30/18 05:45 Potassium 4.1 mmol/L (3.5-5.1) 06/30/18 05:45 Chloride 106 mmol/L (98-107) 06/30/18 05:45 Carbon Dioxide 24 mmol/L (21-32) 06/30/18 05:45 Anion Gap 10 MMOL/L (8-16) 06/30/18 05:45 BUN 19 mg/dL (7-18) H 06/30/18 05:45 Creatinine 0.9 mg/dL (0.55-1.3) 06/30/18 05:45 Creat Clearance w eGFR > 60 (>60) 06/30/18 05:45 Random Glucose 140 mg/dL (74-106) H 06/30/18 05:45 Calcium 9.3 mg/dL (8.5-10.1) 06/30/18 05:45 Total Bilirubin 0.3 mg/dL (0.2-1) 06/30/18 05:45 AST 8 U/L (15-37) L 06/30/18 05:45 ALT 18 U/L (13-61) 06/30/18 05:45 Alkaline Phosphatase 94 U/L (45-117) 06/30/18 05:45 Total Protein 7.3 g/dl (6.4-8.2) 06/30/18 05:45 Albumin 4.0 g/dl (3.4-5.0) 06/30/18 05:45 Urine Color Ltyellow 07/01/18 09:00 Urine Appearance Clear 07/01/18 09:00 Urine pH 7.0 (5.0-8.0) 07/01/18 09:00 Ur Specific [place] 1.016 (1.001-1.035) 07/01/18 09:00 Urine Protein Negative (NEGATIVE) 07/01/18 09:00 Urine Glucose (UA) Negative (NEGATIVE) 07/01/18 09:00 Urine Ketones Negative (NEGATIVE) 07/01/18 09:00 Urine Blood Negative (NEGATIVE) 07/01/18 09:00 Urine Nitrite Negative (NEGATIVE) 07/01/18 09:00 Urine Bilirubin Negative (<2.0 mg/dL) 07/01/18 09:00 Urine Urobilinogen Negative mg/dL (0.2-1.0) 07/01/18 09:00 Ur Leukocyte Esterase Negative (NEGATIVE) 07/01/18 09:00 RPR Titer Nonreactive (NONREACTIVE) 06/30/18 05:45 lab noted Assessment: 07/04/18 15:13 mild withdrawal sx Plan: medically supervised detox
[2018-07-04] MEDS: QUEtiapine FUMARATE 100 MG TABLET (FP) PO SCH (22:18)
[2018-07-04] MEDS: THIAMINE HCL 100 MG TABLET (FP) PO SCH (22:19)
[2018-07-04] MEDS: MELATONIN 5 MG TABLETS PO PRN (22:19)
[2018-07-04] MEDS: LIDOCAINE PATCH REMOVAL MC SCH (22:20)
[2018-07-05] MEDS: DOCUSATE SODIUM 100 MG CAPSULE (FP) PO SCH ×2 (05:48→13:51)
[2018-07-05] MEDS: CYCLOBENZAPRINE HCL 10 MG TABLET (FP) PO PRN (05:49)
[2018-07-05] MEDS: IBUPROFEN 400 MG TABLET (FP) PO PRN (05:50)
--- NOTE | 2018-07-05 08:40 | DS ---
[facility] Detox Discharge Summary Admission Date: 06/29/18 Discharge Date: 07/05/18 - History Present History: Alcohol Dependence, Opioid Dependence, Sedative Dependence Additional Comments: 52 years old male admitted on 06/29/18 for alcohol benzo and opioid withdrawal sx completed detox regimen tolerated well denies alcohol opioid benzo withdrawal sx alert oriented x 3 no acute distress aftercare [facility] - Physical Exam Results Vital Signs: Vital Signs Temperature 97.5 F L 07/05/18 06:00 Pulse Rate 70 07/05/18 06:00 Respiratory Rate 18 07/05/18 06:00 Blood Pressure 111/60 07/05/18 06:00 O2 Sat by Pulse Oximetry (%) Pertinent Admission Physical Exam Findings: alcohol opioid benzo withdrawal sx Vital Signs Temperature 98.1 F 07/05/18 09:16 Pulse Rate 89 07/05/18 09:16 Respiratory Rate 18 07/05/18 09:16 Blood Pressure 133/75 07/05/18 09:16 O2 Sat by Pulse Oximetry (%) Laboratory Last Values WBC 10.2 K/mm3 (4.0-10.0) H 06/30/18 05:45 RBC 4.50 M/mm3 (4.00-5.60) 06/30/18 05:45 Hgb 13.9 GM/dL (11.7-16.9) 06/30/18 05:45 Hct 41.7 % (35.4-49) 06/30/18 05:45 MCV 92.7 fl (80-96) 06/30/18 05:45 MCH 31.0 pg (25.7-33.7) 06/30/18 05:45 MCHC 33.5 g/dl (32.0-35.9) 06/30/18 05:45 RDW 13.9 % (11.9-15.9) 06/30/18 05:45 Plt Count 365 K/MM3 (134-434) D 06/30/18 05:45 MPV 7.7 fl (7.5-11.1) 06/30/18 05:45 Sodium 139 mmol/L (136-145) 06/30/18 05:45 Potassium 4.1 mmol/L (3.5-5.1) 06/30/18 05:45 Chloride 106 mmol/L (98-107) 06/30/18 05:45 Carbon Dioxide 24 mmol/L (21-32) 06/30/18 05:45 Anion Gap 10 MMOL/L (8-16) 06/30/18 05:45 BUN 19 mg/dL (7-18) H 06/30/18 05:45 Creatinine 0.9 mg/dL (0.55-1.3) 06/30/18 05:45 Creat Clearance w eGFR > 60 (>60) 06/30/18 05:45 Random Glucose 140 mg/dL (74-106) H 06/30/18 05:45 Calcium 9.3 mg/dL (8.5-10.1) 06/30/18 05:45 Total Bilirubin 0.3 mg/dL (0.2-1) 06/30/18 05:45 AST 8 U/L (15-37) L 06/30/18 05:45 ALT 18 U/L (13-61) 06/30/18 05:45 Alkaline Phosphatase 94 U/L (45-117) 06/30/18 05:45 Total Protein 7.3 g/dl (6.4-8.2) 06/30/18 05:45 Albumin 4.0 g/dl (3.4-5.0) 06/30/18 05:45 Urine Color Ltyellow 07/01/18 09:00 Urine Appearance Clear 07/01/18 09:00 Urine pH 7.0 (5.0-8.0) 07/01/18 09:00 Ur Specific [place] 1.016 (1.001-1.035) 07/01/18 09:00 Urine Protein Negative (NEGATIVE) 07/01/18 09:00 Urine Glucose (UA) Negative (NEGATIVE) 07/01/18 09:00 Urine Ketones Negative (NEGATIVE) 07/01/18 09:00 Urine Blood Negative (NEGATIVE) 07/01/18 09:00 Urine Nitrite Negative (NEGATIVE) 07/01/18 09:00 Urine Bilirubin Negative (<2.0 mg/dL) 07/01/18 09:00 Urine Urobilinogen Negative mg/dL (0.2-1.0) 07/01/18 09:00 Ur Leukocyte Esterase Negative (NEGATIVE) 07/01/18 09:00 RPR Titer Nonreactive (NONREACTIVE) 06/30/18 05:45 lab oted - Treatment Hospital Course: Detox Protocol Followed, Detoxed Safely, Responded well, Discharged Condition Good, Rehab Referral Accepted Patient has Accepted a Rehab Referral to: [facility] - Medication Discharge Medications: Ambulatory Orders Albuterol Sulfate Inhaler - [Ventolin HFA Inhaler -] 2 inh PO Q4H PRN 05/26/18 Albuterol Sulfate Inhaler - [Ventolin HFA Inhaler -] 2 puff IH Q4H PRN #1 inhaler 07/03/18 Quetiapine Fumarate [Seroquel] 100 mg PO HS #30 tablet 07/05/18 - Diagnosis (1) Alcohol dependence with uncomplicated withdrawal Current Visit: Yes Status: Acute (2) Opioid dependence with withdrawal Current Visit: Yes Status: Acute (3) Substance induced mood disorder Current Visit: Yes Status: Suspected (4) GERD (gastroesophageal reflux disease) Current Visit: Yes Status: Chronic Qualifiers: Esophagitis presence: with esophagitis Qualified Code(s): K21.0 - Gastro- esophageal reflux disease with esophagitis (5) Asthma Current Visit: Yes Status: Chronic Qualifiers: Asthma severity: mild Asthma persistence: intermittent Asthma complication type: uncomplicated Qualified Code(s): J45.20 - Mild intermittent asthma, uncomplicated (6) Nicotine dependence Current Visit: Yes Status: Chronic Qualifiers: Nicotine product type: cigarettes Substance use status: in withdrawal Qualified Code(s): F17.213 - Nicotine dependence, cigarettes, with withdrawal (7) History of diverticulitis Current Visit: No Status: Resolved (8) Status post colostomy Current Visit: No Status: Resolved - AMA Did Patient Leave Against Medical Advice: No
[2018-07-05] MEDS: LIDOCAINE 5% TOPICAL PATCH TP SCH (10:32)
[2018-07-05] MEDS: PRENATAL VITAMINS W/ FOLIC ACID TABLET (FP) PO SCH (10:32)
[2018-07-05 12:56] VITALS: BP 127/71; PULSE 72; TEMP 98.2
[2018-07-05] MEDS: cloNIDine HCL 0.1 MG TABLET PO SCH (13:21)
== END 2018-07-05 13:40 | disposition home or self-care (01) | DRG 773 ==
LOC: YASAS 09:43 → Y6N 11:51
PROC: HZ2ZZZZ Detoxification Services for Substance Abuse Treatment (ICD-10-PCS; principal; 2018-06-29)
DX: F11.23 Opioid dependence with withdrawal (principal); F10.230 Alcohol dependence with withdrawal, uncomplicated; F13.230 Sedative, hypnotic or anxiolytic dependence with withdrawal, uncomplicated; F17.210 Nicotine dependence, cigarettes, uncomplicated; F19.24 Other psychoactive substance dependence with psychoactive substance-induced mood disorder; F41.8 Other specified anxiety disorders; G47.00 Insomnia, unspecified; J45.20 Mild intermittent asthma, uncomplicated; J44.9 Chronic obstructive pulmonary disease, unspecified; K21.9 Gastro-esophageal reflux disease without esophagitis; Z87.19 Personal history of other diseases of the digestive system; Z98.890 Other specified postprocedural states
CPT/HCPCS: 36415; 80053; 81003; 85027; 86593; 90688; 90732; 93005; 93010; G0008; G0009; J0735

== ENCOUNTER 2019-01-22 11:22 | Inpatient (IN) | payer OTHER ==
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
[2019-01-22] MEDS ORDERED: cloNIDine HCL 0.1 MG TABLET PO PRN (13:46)
[2019-01-22] MEDS ORDERED: IBUPROFEN 400 MG TABLET (FP) PO PRN (13:46)
[2019-01-22] MEDS ORDERED: MENTHOL/PHENOL 1 EACH UD MM PRN (13:46)
[2019-01-22] MEDS ORDERED: ONDANSETRON *ODT* 4 MG TABLET SL PRN (13:46)
[2019-01-22] MEDS ORDERED: MAGNESIUM CITRATE 300 ML BOTTLE PO PRN (13:46)
[2019-01-22] MEDS ORDERED: P-EPHED 60MG/TRIPROLIDI 2.5MG TABLET PO PRN (13:46)
[2019-01-22] MEDS ORDERED: BISMUTH SUBSALICYLATE 524 MG/30 ML UD PO PRN (13:46)
[2019-01-22] MEDS ORDERED: NICOTINE POLACRILEX 2 MG GUM BUC PRN (13:46)
[2019-01-22] MEDS ORDERED: MAG HYDROX/AL HYDROX/SIMETH 30 ML UNIT-DOSE CUP PO PRN (13:46)
[2019-01-22] MEDS ORDERED: MAGNESIUM HYDROX 2400MG/30ML ORAL SUSPENSION 30 ML CUP PO PRN (13:46)
[2019-01-22] MEDS ORDERED: ACETAMINOPHEN 325 MG TABLET (FP) PO PRN (13:46)
[2019-01-22] MEDS ORDERED: ALBUTEROL SO4 8 GM HFA INHALER IH PRN (13:51)
[2019-01-22] MEDS ORDERED: ALBUTEROL SO4 0.083% IH SOL 2.5 MG/3 ML VIAL.NEB. NEB PRN (13:54)
[2019-01-22] MEDS ORDERED: METHADONE HCL 10 MG TABLET (FOR DETOX USE ONLY) PO ONE ×2 (14:15→23:00)
[2019-01-22] MEDS ORDERED: chlordiazePOXIDE HCL 25 MG CAPSULE PO ONE (14:15)
[2019-01-22] MEDS: hydrOXYzine PAMOATE 50 MG CAPSULE (FP) PO PRN (19:48)
[2019-01-22] MEDS: chlordiazePOXIDE HCL 10 MG CAPSULE PO PRN (19:49)
[2019-01-22] MEDS: THIAMINE HCL 100 MG TABLET (FP) PO SCH (22:14)
[2019-01-22] MEDS: chlordiazePOXIDE HCL 25 MG CAPSULE PO SCH (22:15)
[2019-01-22] MEDS: MELATONIN 5 MG TABLETS PO PRN (22:15)
[2019-01-23] MEDS: hydrOXYzine PAMOATE 50 MG CAPSULE (FP) PO PRN (02:34)
[2019-01-23] MEDS: chlordiazePOXIDE HCL 10 MG CAPSULE PO PRN ×3 (02:35→18:26)
[2019-01-23] MEDS: chlordiazePOXIDE HCL 25 MG CAPSULE PO SCH ×2 (05:41→13:47)
[2019-01-23] MEDS ORDERED: METHADONE HCL 5 MG TABLET (FOR DETOX USE ONLY) PO ONE (10:00)
[2019-01-23] MEDS: PRENATAL VITAMINS W/ FOLIC ACID TABLET (FP) PO SCH (10:14)
[2019-01-23] MEDS: METHOCARBAMOL 500 MG TABLET PO PRN ×2 (10:14→22:15)
--- NOTE | 2019-01-23 10:15 | PN ---
[facility] CIWA - CIWA Score Nausea/Vomitin-Mild Nausea/No Vomiting Muscle Tremors: 3 Anxiety: 4-Mod. Anxious/Guarded Agitation: 2 Paroxysmal Sweats: 1-Minimal Palms Moist Orientation: 1-Uncertain about Date Tacttile Disturbances: 0-None Auditory Disturbances: 0-None Visual Disturbances: 0-None Headache: 0-None Present CIWA-Ar Total Score: 12 S COWS - Scale Resting Pulse: 0= [place] 80 or Below Sweatin= Chills/Flushing Restless Observation: 0= Sits Still Pupil Size: 0= Normal to Room Light Bone or Joint Aches: 1= Mild Discomfort Runny Nose/ Eye Tearin= Nasal Congestion GI Upset > 30mins: 2= Nausea/Diarrhea Tremor Observation of Outstretched Hands: 2= Slight Tremor Visible Yawning Observation: 2= >3x During Session Anxiety or Irritability: 2=Irritable/Anxious Goose Flesh Skin: 0=Smooth Skin COWS Score: 11 [facility] Progress Note (SOAP) Subjective: taking seroquel for depression and anxiety last dose three weeks ago psychiatric referral Objective: 01/23/19 10:14 Vital Signs Temperature 98.6 F 01/23/19 09:07 Pulse Rate 62 01/23/19 09:07 Respiratory Rate 18 01/23/19 09:07 Blood Pressure 99/53 L 01/23/19 09:07 O2 Sat by Pulse Oximetry (%) 01/23/19 10:14 lab pending Assessment: 01/23/19 10:15 alcohol and opiate withdrawal Plan: continue detox
[2019-01-23 10:20] LABS: ALBUMIN 3.8 g/dl (3.4-5.0); ALK PHOS 110 U/L (45-117); ANION GAP 4 MMOL/L (8-16); BILIRUBIN,TOTAL 0.3 mg/dL (0.2-1); BLOOD UREA NITROGEN 11 mg/dL (7-18); CALCIUM 8.8 mg/dL (8.5-10.1); CHLORIDE 107 mmol/L (98-107); CO2 29 mmol/L (21-32); CREATININE 0.6 mg/dL (0.55-1.3); GLUCOSE,RANDOM 99 mg/dL (74-106); POTASSIUM 4.3 mmol/L (3.5-5.1); SGOT/AST 12 U/L (15-37); SGPT/ALT 25 U/L (13-61); SODIUM 140 mmol/L (136-145); TOT PROT 6.9 g/dl (6.4-8.2)
[2019-01-23 10:32] LABS: HEMATOCRIT 42.9 % (35.4-49); HEMOGLOBIN 14.7 GM/dL (11.7-16.9); MCH 31.7 pg (25.7-33.7); MCHC 34.2 g/dl (32.0-35.9); MEAN CELL VOLUME 92.7 fl (80-96); MEAN PLT VOLUME 7.4 fl (7.5-11.1); PLATELET COUNT 267 K/MM3 (134-434); RBC 4.63 M/mm3 (4.00-5.60); RDW 14.1 % (11.9-15.9); WHITE BLOOD COUNT 9.2 K/mm3 (4.0-10.0)
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
--- NOTE | 2019-01-23 13:01 | EKG ---
Test Reason : Blood Pressure : / mmHG Vent. Rate : 060 BPM Atrial Rate : 060 BPM P-R Int : 176 ms QRS Dur : 090 ms QT Int : 414 ms P-R-T Axes : 051 019 036 degrees QTc Int : 414 ms NORMAL SINUS RHYTHM NORMAL ECG Confirmed by MD KEVIN, LIZZIE ([id number]) on 01/23/2019 1:01:04 PM Referred By: ZAHEER KRISHNAN Confirmed By:LIZZIE BROWN MD
[2019-01-23] MEDS: MELATONIN 5 MG TABLETS PO PRN (22:16)
[2019-01-23] MEDS: QUEtiapine FUMARATE 100 MG TABLET (FP) PO SCH (22:16)
[2019-01-23] MEDS: THIAMINE HCL 100 MG TABLET (FP) PO SCH (22:16)
[2019-01-23] MEDS: chlordiazePOXIDE 5 MG CAPSULE PO SCH (22:16)
[2019-01-24] MEDS ORDERED: ALBUTEROL SO4 8 GM HFA INHALER IH ONE (02:18)
[2019-01-24] MEDS: chlordiazePOXIDE HCL 10 MG CAPSULE PO PRN (02:19)
[2019-01-24] MEDS: chlordiazePOXIDE 5 MG CAPSULE PO SCH ×2 (05:23→14:00)
[2019-01-24] MEDS ORDERED: METHADONE HCL 10 MG TABLET (FOR DETOX USE ONLY) PO ONE (10:00)
[2019-01-24] MEDS: PRENATAL VITAMINS W/ FOLIC ACID TABLET (FP) PO SCH (10:14)
[2019-01-24] MEDS: METHOCARBAMOL 500 MG TABLET PO PRN ×2 (10:14→18:12)
--- NOTE | 2019-01-24 15:58 | PN ---
S CIWA - CIWA Score Nausea/Vomitin Muscle Tremors: 2 Anxiety: 3 Agitation: 1-Slight > Activity Paroxysmal Sweats: 2 Orientation: 0-Oriented Tacttile Disturbances: 0-None Auditory Disturbances: 0-None Visual Disturbances: 0-None Headache: 2-Mild CIWA-Ar Total Score: 15 [facility] COWS - Scale Resting Pulse: 1= [place] 81-100 Sweatin= Chills/Flushing Restless Observation: 1= Difficult to Sit Still Pupil Size: 0= Normal to Room Light Bone or Joint Aches: 2= Severe Diffuse Aches Runny Nose/ Eye Tearin= None GI Upset > 30mins: 3= Vomiting/Diarrhea Tremor Observation of Outstretched Hands: 2= Slight Tremor Visible Yawning Observation: 1= 1-2x During Session Anxiety or Irritability: 2=Irritable/Anxious Goose Flesh Skin: 3=Piloerection COWS Score: 16 [facility] Progress Note (SOAP) Subjective: Vomiting, Sweating, Tremors, H/A, Diarrhea, Stomach Cramping, Body Aches. Objective: PATIENT A & O X 3, OBSERVED AMBULATING ON UNIT UNASSISTED. IN NO ACUTE DISTRESS. 01/24/19 16:01 Vital Signs Temperature 97.6 F 01/24/19 13:15 Pulse Rate 84 01/24/19 13:15 Respiratory Rate 18 01/24/19 13:15 Blood Pressure 128/78 01/24/19 13:15 O2 Sat by Pulse Oximetry (%) Laboratory Tests 01/23/19 01/23/19 01/23/19 07:40 07:40 07:40 WBC 9.2 RBC 4.63 Hgb 14.7 Hct 42.9 MCV 92.7 MCH 31.7 MCHC 34.2 RDW 14.1 Plt Count 267 D MPV 7.4 L Sodium 140 Potassium 4.3 Chloride 107 Carbon Dioxide 29 Anion Gap 4 L BUN 11 Creatinine 0.6 Creat Clearance w eGFR 140.40 Random Glucose 99 Calcium 8.8 Total Bilirubin 0.3 AST 12 L ALT 25 Alkaline Phosphatase 110 Total Protein 6.9 Albumin 3.8 RPR Titer Nonreactive LABS NOTED. Assessment: 01/24/19 16:01 WITHDRAWAL SYMPTOMS. Plan: CONTINUE DETOX. INCREASE DAILY PO FLUID INTAKE. PRN ROBAXIN PO FOR BODY ACHES / MUSCLE SPASMS. PATIENT REPORTS THAT HS DOSE OF SEROQUEL IS CAUSING HIM TO FEEL IF "HE WANTS TO CRAWL OUT OF HIS SKIN." PSYCHIATRIST DR. Annabel JARQUIN MADE AWARE.
--- NOTE | 2019-01-24 16:03 | PN ---
[facility] Progress Note Note: Psychiatry Attending's note (follow-up) : Case referred for re-evaluation of medication regimen. Discussed with medical BIOLOGICS SPECIALIST Israel Luque. Complaint : jitteriness. Patient attributes the cause to dose of seroquel. Wants dose reduced. Chart reviewed. Psychiatrist Dr Carrillo's note of 01/23/19 : appreciated. Patient seen.
[2019-01-24] MEDS: IBUPROFEN 400 MG TABLET (FP) PO PRN (18:12)
[2019-01-24] MEDS ORDERED: chlordiazePOXIDE HCL 10 MG CAPSULE PO PRN (21:00)
[2019-01-24] MEDS: QUEtiapine FUMARATE 100 MG TABLET (FP) PO SCH (21:42)
[2019-01-24] MEDS: chlordiazePOXIDE HCL 10 MG CAPSULE PO SCH (21:42)
[2019-01-24] MEDS: THIAMINE HCL 100 MG TABLET (FP) PO SCH (21:42)
[2019-01-24] MEDS: hydrOXYzine PAMOATE 50 MG CAPSULE (FP) PO PRN (21:46)
[2019-01-24] MEDS: MELATONIN 5 MG TABLETS PO PRN (21:46)
[2019-01-25] MEDS: chlordiazePOXIDE HCL 10 MG CAPSULE PO SCH (05:25)
[2019-01-25] MEDS ORDERED: METHADONE HCL 5 MG TABLET (FOR DETOX USE ONLY) PO ONE (06:00)
[2019-01-25] MEDS: IBUPROFEN 400 MG TABLET (FP) PO PRN (08:03)
[2019-01-25] MEDS: METHOCARBAMOL 500 MG TABLET PO PRN (08:03)
[2019-01-25 09:26] VITALS: BP 125/83; PULSE 79; TEMP 97
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
== END 2019-01-25 09:45 | disposition home or self-care (01) | DRG 773 ==
LOC: YASAS 11:22 → Y3N 14:02
PROVIDERS: ADMIT Surgery; ATTEND Surgery
PROC: HZ2ZZZZ Detoxification Services for Substance Abuse Treatment (ICD-10-PCS; principal; 2019-01-22)
DX: F11.23 Opioid dependence with withdrawal (principal); F10.230 Alcohol dependence with withdrawal, uncomplicated; F17.210 Nicotine dependence, cigarettes, uncomplicated; F19.24 Other psychoactive substance dependence with psychoactive substance-induced mood disorder; F19.282 Other psychoactive substance dependence with psychoactive substance-induced sleep disorder; F41.9 Anxiety disorder, unspecified; F32.9 Major depressive disorder, single episode, unspecified; J45.30 Mild persistent asthma, uncomplicated; K21.9 Gastro-esophageal reflux disease without esophagitis; M54.5 Low back pain; Z91.048 Other nonmedicinal substance allergy status
CPT/HCPCS: 36415; 80053; 85027; 86593; 93005; 93010; J0735

== ENCOUNTER 2021-10-19 19:59 | Inpatient (IN) | payer OTHER ==
[2021-10-19 21:28] VITALS: BMI 22.8
[2021-10-19] MEDS ORDERED: cloNIDine HCL 0.1 MG TABLET PO PRN (22:26)
[2021-10-19] MEDS ORDERED: MAGNESIUM CITRATE 300 ML BOTTLE PO PRN (22:26)
[2021-10-19] MEDS ORDERED: BISMUTH SUBSALICYLATE 524 MG/30 ML PO PRN (22:26)
[2021-10-19] MEDS ORDERED: NICOTINE POLACRILEX 2 MG GUM BUC PRN (22:26)
[2021-10-19] MEDS ORDERED: chlordiazePOXIDE HCL 25 MG CAPSULE PO PRN (22:26)
[2021-10-19] MEDS ORDERED: IBUPROFEN 400 MG TABLET (FP) PO PRN (22:26)
[2021-10-19] MEDS ORDERED: ONDANSETRON *ODT* 4 MG TABLET SL PRN (22:26)
[2021-10-19] MEDS ORDERED: MAG HYDROX/AL HYDROX/SIMETH 30 ML UNIT-DOSE CUP PO PRN (22:26)
[2021-10-19] MEDS ORDERED: methaDONE HCL 10 MG TABLET (FOR DETOX USE ONLY) PO ONE (22:26)
[2021-10-19] MEDS ORDERED: MAGNESIUM HYDROX 2400MG/30ML ORAL SUSPENSION 30 ML CUP PO PRN (22:26)
[2021-10-19] MEDS ORDERED: ACETAMINOPHEN 325 MG TABLET (FP) PO PRN ×2 (22:26)
[2021-10-19] MEDS ORDERED: MENTHOL/PHENOL 1 EACH UD MM PRN (22:26)
[2021-10-20] MEDS: chlordiazePOXIDE HCL 25 MG CAPSULE PO SCH ×5 (00:07→22:02)
[2021-10-20] MEDS ORDERED: methaDONE HCL 10 MG TABLET (FOR DETOX USE ONLY) ONE (09:26)
[2021-10-20] MEDS: PRENATAL VITAMINS W/ FOLIC ACID TABLET (FP) PO SCH (10:45)
[2021-10-20] MEDS: NICOTINE 14 MG/24 HOURS TOPICAL PATCH TD SCH (10:45)
[2021-10-20 11:24] LABS: ALBUMIN 3.8 g/dl (3.4-5.0); CALCIUM 8.9 mg/dL (8.5-10.1)
[2021-10-20 11:25] LABS: BLOOD UREA NITROGEN 19.5 mg/dL (7-18)
[2021-10-20 11:27] LABS: CREATININE 0.9 mg/dL (0.55-1.3)
[2021-10-20 11:28] LABS: HEMATOCRIT 45.4 % (35.4-49); HEMOGLOBIN 15.2 GM/dL (11.7-16.9); MCH 32.2 pg (25.7-33.7); MCHC 33.4 g/dl (32.0-35.9); MEAN CELL VOLUME 96.6 fl (80-96); MEAN PLT VOLUME 7.1 fl (7.5-11.1); PLATELET COUNT 305 10^3/uL (134-434); RDW 13.3 % (11.9-15.9); WHITE BLOOD COUNT 9.1 K/mm3 (4.0-10.0)
[2021-10-20 11:29] LABS: BILIRUBIN,TOTAL 0.3 mg/dL (0.2-1); TOT PROT 7.1 g/dl (6.4-8.2)
[2021-10-20] MEDS ORDERED: MELATONIN 5 MG TABLETS PO SCH (22:00)
[2021-10-20] MEDS ORDERED: traZODone HCL 50 MG TABLET (FP) PO SCH (22:00)
[2021-10-20] MEDS ORDERED: THIAMINE HCL 100 MG TABLET (FP) PO SCH (22:00)
[2021-10-20] MEDS: METHOCARBAMOL 500 MG TABLET PO PRN (22:02)
[2021-10-21] MEDS: chlordiazePOXIDE HCL 25 MG CAPSULE PO SCH ×2 (05:44→10:31)
[2021-10-21] MEDS: METHOCARBAMOL 500 MG TABLET PO PRN (05:45)
[2021-10-21] MEDS ORDERED: methaDONE HCL 10 MG TABLET (FOR DETOX USE ONLY) PO ONE (10:00)
[2021-10-21] MEDS ORDERED: ALBUTEROL SO4 HFA INHALER IH PRN (10:25)
[2021-10-21] MEDS: PRENATAL VITAMINS W/ FOLIC ACID TABLET (FP) PO SCH (10:31)
[2021-10-21] MEDS: NICOTINE 14 MG/24 HOURS TOPICAL PATCH TD SCH (10:37)
[2021-10-21 13:12] VITALS: BP 148/85; PULSE 57; TEMP 96.4
[2021-10-22] MEDS ORDERED: chlordiazePOXIDE HCL 10 MG CAPSULE PO PRN
[2021-10-22] MEDS ORDERED: chlordiazePOXIDE HCL 10 MG CAPSULE PO SCH (05:00)
[2021-10-23] MEDS ORDERED: chlordiazePOXIDE HCL 10 MG CAPSULE PO SCH (05:00)
[2021-10-23] MEDS ORDERED: methaDONE HCL 10 MG TABLET (FOR DETOX USE ONLY) PO ONE (10:00)
[2021-10-24] MEDS ORDERED: chlordiazePOXIDE HCL 10 MG CAPSULE PO ONE (05:00)
== END 2021-10-21 15:54 | disposition left against medical advice (07) | DRG 770 ==
LOC: YASAS 19:59 → Y3N 22:28
PROVIDERS: ADMIT Allergy & Immunology; ATTEND Allergy & Immunology
PROC: HZ2ZZZZ Detoxification Services for Substance Abuse Treatment (ICD-10-PCS; principal; 2021-10-19)
DX: F11.23 Opioid dependence with withdrawal (principal); F10.230 Alcohol dependence with withdrawal, uncomplicated; F14.20 Cocaine dependence, uncomplicated; F12.20 Cannabis dependence, uncomplicated; F17.210 Nicotine dependence, cigarettes, uncomplicated; F19.282 Other psychoactive substance dependence with psychoactive substance-induced sleep disorder; F19.24 Other psychoactive substance dependence with psychoactive substance-induced mood disorder; F41.8 Other specified anxiety disorders; F32.A Depression, unspecified; J44.9 Chronic obstructive pulmonary disease, unspecified; J45.30 Mild persistent asthma, uncomplicated; K21.9 Gastro-esophageal reflux disease without esophagitis; R79.89 Other specified abnormal findings of blood chemistry; Z62.810 Personal history of physical and sexual abuse in childhood; Z56.0 Unemployment, unspecified; Z59.00 Homelessness unspecified
CPT/HCPCS: 36415; 80053; 85027; 86780; C9803; U0003; U0005